=== PATIENT | female | born 1970 ===

== ENCOUNTER 2017-02-17 06:19 | Day surgery (SDC) | payer BC, OTHER ==
[~2017-02-17 06:19] MED LIST: Lidocaine 1%/Sod Bicarbonate in NS 8.4% 1 ML Syringe IV PRN; Sodium Chloride 0.9% 10 ML Syringe FLUSH PRN
[2017-02-17] MEDS ORDERED: Bupivacaine 0.5% 30 ML SDV ONE (06:46)
[2017-02-17] MEDS ORDERED: Lidocaine 1% with EPINEPHrine 1:100,000 20 ML MDV ONE (06:46)
[2017-02-17] MEDS ORDERED: Sodium Chloride 0.9% 50 ML SDV ONE (06:47)
[2017-02-17] MEDS ORDERED: Midazolam 1 MG/ML 2 ML SDV ONE (07:12)
[2017-02-17] MEDS ORDERED: Propofol 200 MG/20 ML SDV ONE (07:12)
[2017-02-17] MEDS ORDERED: Rocuronium 50 MG/5 ML Vial ONE ×2 (07:12→09:43)
[2017-02-17] MEDS ORDERED: fentaNYL 250 MCG/5 ML SDV ONE (07:12)
[2017-02-17] MEDS ORDERED: Lidocaine 1% 4 ML ONE (07:13)
[2017-02-17] MEDS ORDERED: Dexamethasone 4 MG/ML 5 ML MDV ONE (07:13)
[2017-02-17] MEDS ORDERED: Ondansetron 4 MG/2 ML SDV ONE (07:13)
[2017-02-17] MEDS: Lactated Ringers 1,000 ML IV SCH ×3 (07:15→14:37)
--- NOTE | 2017-02-17 07:29 | PCM.PREANE ---
Preanesthetic Assessment - Anesthesia/Transfusion/Family Hx Anesthesia History: Prior Anesthesia Without Reaction Family History of Anesthesia Reaction: No Transfusion History: No Prior Transfusion(s) Intubation History: Unknown - Review of Systems General: No Symptoms Pulmonary: No Symptoms, Cough, Other (Smoker 1/2 pack per day) Cardiovascular: No Symptoms Gastrointestinal: No Symptoms Neurological: No Symptoms Other: Reports: None (Thyroidmegaly documented in her chart, patient denies. ) - Physical Assessment NPO Status Date: 02/16/17 NPO Status Time: 20:30 O2 Sat by Pulse Oximetry: 98 Respiratory Rate: 16 Vital Signs: Last Vital Signs Temp 36.6 C 02/17/17 06:30 Pulse 79 02/17/17 06:30 Resp 16 02/17/17 06:30 BP 114/73 02/17/17 06:30 Pulse Ox 98 02/17/17 06:30 Height: 1.57 m Weight: 59.421 kg - Lab Values: Laboratory Last Values WBC 8.66 K/mm3 (3.98-10.04) 02/15/17 15:04 RBC 4.81 M/mm3 (3.98-5.22) 02/15/17 15:04 Hgb 14.7 gm/L (11.2-15.7) 02/15/17 15:04 Hct 43.2 % (34.1-44.9) 02/15/17 15:04 MCV 89.8 fl (79.4-94.8) 02/15/17 15:04 MCH 30.6 pg (25.6-32.2) 02/15/17 15:04 MCHC 34.0 g/dl (32.2-35.5) 02/15/17 15:04 RDW Std Deviation 46.1 fL (36.4-46.3) 02/15/17 15:04 Plt Count 327 K/mm3 (182-369) 02/15/17 15:04 MPV 8.6 fl (9.4-12.3) L 02/15/17 15:04 Neut % (Auto) 62.2 % (34.0-71.1) 02/15/17 15:04 Lymph % (Auto) 27.3 % (19.3-51.7) 02/15/17 15:04 [place] % (Auto) 8.9 % (4.7-12.5) 02/15/17 15:04 Eos % (Auto) 1.0 (0.7-5.8) 02/15/17 15:04 Baso % (Auto) 0.5 % (0.1-1.2) 02/15/17 15:04 Neut # (Auto) 5.39 K/mm3 (1.56-6.13) 02/15/17 15:04 Lymph # (Auto) 2.36 K/mm3 (1.18-3.74) 02/15/17 15:04 [place] # (Auto) 0.77 K/mm3 (0.24-0.36) H 02/15/17 15:04 Eos # (Auto) 0.09 K/mm3 (0.04-0.36) 02/15/17 15:04 Baso # (Auto) 0.04 K/mm3 (0.01-0.08) 02/15/17 15:04 Sodium 142 mEq/L (136-145) 02/15/17 15:04 Potassium 4.1 mEq/L (3.5-5.1) 02/15/17 15:04 Chloride 106 mEq/L (98-107) 02/15/17 15:04 Carbon Dioxide 28 mEq/L (21-32) 02/15/17 15:04 Anion Gap 12.1 (5-15) 02/15/17 15:04 BUN 18 mg/dL (7-18) 02/15/17 15:04 Creatinine 1.0 mg/dL (0.55-1.02) 02/15/17 15:04 Est Cr Clr Drug Dosing TNP 02/15/17 15:04 Estimated GFR (MDRD) 59 mL/min (>60) 02/15/17 15:04 BUN/Creatinine Ratio 18.0 (14-18) 02/15/17 15:04 Glucose 89 mg/dL (74-106) 02/15/17 15:04 Calcium 9.1 mg/dL (8.5-10.1) 02/15/17 15:04 Total Bilirubin 0.4 mg/dL (0.2-1.0) 02/15/17 15:04 AST 14 U/L (15-37) L 02/15/17 15:04 ALT 23 U/L (14-59) 02/15/17 15:04 Alkaline Phosphatase 51 U/L (46-116) 02/15/17 15:04 Total Protein 6.9 g/dl (6.4-8.2) 02/15/17 15:04 Albumin 3.7 g/dl (3.4-5.0) 02/15/17 15:04 Globulin 3.2 gm/dL 02/15/17 15:04 Albumin/Globulin Ratio 1.2 (1-2) 02/15/17 15:04 Urine Color Yellow (Yellow) 02/15/17 15:04 Urine Appearance Clear (Clear) 02/15/17 15:04 Urine pH 6.0 (5.0-8.0) 02/15/17 15:04 Ur Specific [place] 1.025 (1.005-1.030) 02/15/17 15:04 Urine Protein Negative (Negative) 02/15/17 15:04 Urine Glucose (UA) Negative (Negative) 02/15/17 15:04 Urine Ketones Negative (Negative) 02/15/17 15:04 Urine Occult Blood Trace-lysed (Negative) H 02/15/17 15:04 Urine Nitrite Negative (Negative) 02/15/17 15:04 Urine Bilirubin Negative (Negative) 02/15/17 15:04 Urine Urobilinogen 0.2 (0.2-1.0) 02/15/17 15:04 Ur Leukocyte Esterase Negative (Negative) 02/15/17 15:04 Urine HCG, Qual Negative (NEGATIVE) 02/15/17 15:04 Blood Type A POSITIVE 02/15/17 15:04 Gel Antibody Screen Negative 02/15/17 15:04 - Allergies Allergies/Adverse Reactions: Allergies Allergy/AdvReac Type Severity Reaction Status Date / Time No Known Allergies Allergy Verified 02/16/17 12:48 PreAnesthesia Questionnaire HEENT History: Reports: None Cardiovascular History: Reports: None Respiratory History: Reports: None Gastrointestinal History: Reports: None REGISTERED NURSE PRACTITIONER History: Reports: Spontaneous , Other (See Below) Other OB/BYN History: left ovarian mass Musculoskeletal History: Reports: Back Pain, Chronic Neurological History: Reports: None Psychiatric History: Reports: None Other Endocrine/Metabolic History: thyromegaly Hematologic History: Reports: None Immunologic History: Reports: None Oncologic (Cancer) History: Reports: None Dermatologic History: Reports: None - Past Surgical History Head Surgeries/Procedures: Reports: None HEENT Surgical History: Reports: None Cardiovascular Surgical History: Reports: None Respiratory Surgical History: Reports: None GI Surgical History: Reports: None Female Surgical History: Reports: Section, D&C Endocrine Surgical History: Reports: None Neurological Surgical History: Reports: None Musculoskeletal Surgical History: Reports: None Oncologic Surgical History: Reports: None Dermatological Surgical History: Reports: None - SUBSTANCE USE Smoking Status *Q: Current Every Day Smoker Recreational Drug Use History: No - HOME MEDS Home Medications: Home Meds . [No Known Home Meds] 02/16/17 [History] - CURRENT (IN HOUSE) MEDS Current Meds: Current Medications Lactated Ringer's (Ringers, Lactated) 1,000 mls @ 125 mls/hr IV ASDIRECTED JOSE Stop: 02/17/17 18:00 Lidocaine/Sodium Bicarbonate (Buffered Lidocaine 1% In Ns 8.4%) 0.25 ml IV ONETIME PRN PRN Reason: Prior to IV Start Stop: 02/17/17 18:00 Sodium Chloride (Saline Flush) 10 ml FLUSH ASDIRECTED PRN PRN Reason: Keep Vein Open Stop: 02/17/17 18:00 Discontinued Medications Bupivacaine HCl (Marcaine 0.5%) Confirm Administered Dose 30 ml .ROUTE .STK-MED ONE Stop: 02/17/17 06:47 Dexamethasone (Dexamethasone) Confirm Administered Dose 20 mg .ROUTE .STK-MED ONE Stop: 02/17/17 07:14 Fentanyl (Sublimaze) Confirm Administered Dose 250 mcg .ROUTE .STK-MED ONE Stop: 02/17/17 07:13 Lidocaine HCl (Xylocaine-Mpf 1%) Confirm Administered Dose 4 mls @ as directed .ROUTE .STK-MED ONE Stop: 02/17/17 07:14 Lidocaine/Epinephrine (Xylocaine 1% With Epinephrine 1:100,000) Confirm Administered Dose 20 ml .ROUTE .STK-MED ONE Stop: 02/17/17 06:47 Midazolam HCl (Versed 1 Mg/Ml) Confirm Administered Dose 2 mg .ROUTE .STK-MED ONE Stop: 02/17/17 07:13 Ondansetron HCl (Zofran) Confirm Administered Dose 4 mg .ROUTE .STK-MED ONE Stop: 02/17/17 07:14 Propofol (Diprivan 20 Ml) Confirm Administered Dose 400 mg .ROUTE .STK-MED ONE Stop: 02/17/17 07:13 Rocuronium [place] (Zemuron) Confirm Administered Dose 50 mg .ROUTE .STK-MED ONE Stop: 02/17/17 07:13 Sodium Chloride (Normal Saline) Confirm Administered Dose 50 ml .ROUTE .STK-MED ONE Stop: 02/17/17 06:48
[2017-02-17] MEDS ORDERED: Ketamine 500 mg/10 ML MDV ONE (08:35)
[2017-02-17] MEDS ORDERED: HYDROmorphone 1 MG/ML Syringe ONE (08:46)
[2017-02-17] MEDS ORDERED: HYDROmorphone 0.5 MG/0.5 ML Syringe IVPUSH PRN (08:56)
[2017-02-17] MEDS ORDERED: fentaNYL 100 MCG/2 ML SDV IVPUSH PRN (08:56)
[2017-02-17] MEDS ORDERED: diphenhydrAMINE 50 MG/ML SDV IVPUSH PRN (08:56)
[2017-02-17] MEDS ORDERED: Haloperidol Lactate 5 MG/ML SDV IVPUSH PRN (08:56)
[2017-02-17] MEDS ORDERED: Neostigmine Methylsulfate 1 MG/ML 5 ML Syringe ONE (09:40)
[2017-02-17] MEDS ORDERED: ceFAZolin 1 GM Vial ONE (09:43)
[2017-02-17] MEDS ORDERED: Lactated Ringers 1,000 ML ONE (09:50)
[2017-02-17] MEDS ORDERED: Ondansetron 4 MG/2 ML SDV IVPUSH PRN (09:57)
[2017-02-17] MEDS ORDERED: Acetaminophen/oxyCODONE 325-5 MG Tab PO PRN (09:57)
[2017-02-17] MEDS ORDERED: Ketorolac 30 MG/ML SDV ONE (09:59)
--- NOTE | 2017-02-17 10:08 | PCM.OPNOTE ---
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 Moderate the dense pelvic adhesions. Omental adhesions to anterior abdominal wall. Normal appearing cul-de-sac posteriorly, appendix, liver edge. Pre Op Diagnosis: 1. Menorrhagia. 2. Right ovarian mass Post-Op Diagnosis: 1. Menorrhagia. 2. Left ovarian dermoid. 3. Right ovarian hemorrhagic cyst Anesthesia Technique: General ET Tube Other Anesthesia Type: Marcaine 0.5%-approximately 10 mL, lidocaine 1% with [id number] mL Primary Surgeon: Fili Rodriguez Secondary Surgeon: Jesus Hutchinson Anesthesia Provider: Leidy Alcantara Fiberglass Laminator: Jn [place] Reason Fiberglass Laminator Was Necessary: Retraction, assistance, safety, quality of care. Role of Fiberglass Laminator: Retraction Fluid Replacement, Intraop: 1,800 Output, Urine Amount: 50 EBL in mLs: 200 Drain/Tube Comments:: Indwelling bladder catheterduring surgery only. Removed at the end of the case. Complications: None Condition: Good Free Text/Narrative:: Surgery duration 1 hour 21 minutes The patient was taken to the operating room placed in supine position on the operating table. She received 2 g of Ancef preoperatively for infection prophylaxis. She had signed consent previously. After adequate anesthesia patient was placed in a dorsal lithotomy position. It should be noted she had sequential compression stockings in place for DVT prophylaxis. A uterine manipulator was placed as was an latex free indwelling bladder catheter. This was done after adequate prepping and draping. The patient was placed in supine position and four laparoscopic port sites were developed. Marcaine 0.5% approximately 3-5 mL was injected at each site. Varies needle was placed and pneumoperitoneum was achieved with 3 L of CO2. Infraumbilical, suprapubic and 2 lateral port sites were developed. Under laparoscopic guidance the upper portion of the hysterectomy was performed. The right infundibulopelvic ligament was elevated and crossclamped using the endoseal computerized cautery device. The round ligament was taken down to the broad ligament. At this time attention was turned to the left side and the left infundibulopelvic ligament and the triple ligament were then taken down in a similar fashion. Broad ligament was taken down to the area of the uterine vasculature. Uterine vasculature was developed in the usual fashion using the cautery system. Both uterine arteries were identified and developed. Vaginal approach was then undertaken. The patient was placed in the dorsal lithotomy position and a weighted speculum was placed in the vagina. The cervix was injected with lidocaine quarter percent with epinephrine 20 mL total. A full circumference incision was made through the epithelium around the cervix. Posterior cul-de-sac was entered without problems. The left uterosacral ligament and then the right uterosacral were taken down using the Enseal vessel closure system. The cardinal ligament and what remained of the uterine vascular vessels and cervical branches of the vessels were managed with the Enseal vessel closure system on each side. Anterior cul-de-sac was then entered and the remaining portion of broad ligament on the right side and a small portion of broad ligament remaining on the left side were then developed in the usual fashion. Uterus was then removed. At this point the uterus was completely removed and sent as specimen. The vaginal cuff was then run with a locked running suture of 0 Monocryl from the 2 o'clock position to the 10 o'clock position. The vagina was closed with a running locked suture of 0 Monocryl. Hemostasis was confirmed this time and no bleeding was noted. Laparoscopy was then performed to ensure hemostasis. Pneumoperitoneum was reestablished and the laparoscope was placed. The pelvis was found to be hemostatically intact. There was no evidence of any bowel adhesion to the vaginal cuff area noted. The sleeves were removed under direct visualization and the upper sleeve was removed after reversal of the pneumoperitoneum. Each of these sites were closed with a single interrupted suture of 3-0 Monocryl. They were further approximated with Dermabond skin glue. At this point the patient was awakened from general endotracheal anesthesia. The Wilkes catheter had been removed by this time. She is discharged from the operating room in good condition.
--- NOTE | 2017-02-17 10:09 | PCM.POSTAN ---
POST ANESTHESIA ASSESSMENT - MENTAL STATUS Mental Status: Somnolent - VITAL SIGNS Pulse Rate: 87 SaO2: 99 Resp Rate: 9 Blood Pressure: 107/67 Temperature: 36.8 C - RESPIRATORY Respiratory Status: Respiratory Rate WNL, Airway Patent, O2 Saturation Stable, Supplemental Oxygen - CARDIOVASCULAR CV Status: Pulse Rate WNL, Blood Pressure Stable - GASTROINTESTINAL GI Status: No Symptoms - PAIN Pain Score: 0 - POST OP HYDRATION Hydration Status: Adequate & Stable
[2017-02-17] MEDS ORDERED: Lactated Ringers 500 ML IV ONE (13:05)
--- NOTE | 2017-02-17 13:19 | PCM48HPAN ---
Post Anesthesia Note - EVALUATION WITHIN 48HRS OF ANESTHETIC Vital Signs in Normal Range: Yes Patient Participated in Evaluation: Yes Respiratory Function Stable: Yes Airway Patent: Yes Cardiovascular Function Stable: Yes Hydration Status Stable: Yes Pain Control Satisfactory: Yes Nausea and Vomiting Control Satisfactory: Yes Mental Status Recovered: Yes
== END 2017-02-17 14:15 | disposition home or self-care (01) ==
LOC: JD.SDS 06:19
PROVIDERS: ATTEND Obstetrics & Gynecology
DX: N80.0 Endometriosis of uterus (principal); D27.1 Benign neoplasm of left ovary; D25.9 Leiomyoma of uterus, unspecified; N83.8 Other noninflammatory disorders of ovary, fallopian tube and broad ligament; E01.0 Iodine-deficiency related diffuse (endemic) goiter; G89.29 Other chronic pain; M54.9 Dorsalgia, unspecified; F17.210 Nicotine dependence, cigarettes, uncomplicated
CPT/HCPCS: 36415; 58552; 80053; 81003; 81025; 85025; 86850; 86900; 86901; A9270; J0690; J1100; J1170; J1885; J2250; J2405; J2710; J3010; J7120; 00840; J2001; J2704